=== PATIENT | male | born 1995 | race Caucasian/White ===

== ENCOUNTER 2024-11-15 17:56 | Emergency (ER) | payer BC, SELFPAY ==
[2024-11-15 18:00] VITALS: BP 130/67; PULSE 108; RESP 18; TEMP 36.7; O2SAT 97
--- NOTE | 2024-11-15 18:23 | XRR_ITS ---
PROCEDURE INFORMATION: Exam: XR Right Finger(s) Exam date and time: 11/15/2024 6:26 PM Age: 29 years old Clinical indication: Injury or trauma; Other: Law mower cut; Laceration; Right; Middle finger; Additional info: Trauma, 3rd digit, lawnmower injury TECHNIQUE: Imaging protocol: Radiologic exam of the right fingers. Views: Minimum 2 views. COMPARISON: No relevant prior studies available. FINDINGS: Bones/joints: No acute fracture or dislocation. Soft tissues: Distal 3rd finger laceration. No radiopaque foreign body. XR/XR finger RT min 2V 69510 IMPRESSION: No acute bony findings.
--- NOTE | 2024-11-15 18:40 | ED_ITS ---
HPI - Wound/Laceration General: Chief Complaint: Wound/Laceration Stated Complaint: cut right middle finger Time Seen by Provider: 11/15/24 18:16 Source: patient Mode of arrival: ambulatory Limitations: no limitations History of Present Illness: 29yo male presents with family for evalu ation of an injury of the right middle finger that occurred when he accidentally cut himself on a lawnmower blade. Patient reports he is not certain how deep or big the laceration is. States he is able to move his finger. Patient saw a flap and wrapped his finger in a paper towel. Unsure when last tetanus. Denies any other injury or concern at this time. Associated symptoms: Denies chills or fever(s) Related Data Previous Rx's ?Medication ?Instructions ?Recorded promethazine-DM 6.25 mg-15 mg/5 mL 10 ml PO Q6H PRN co ugh #118 mL 09/25/23 oral syrup cephalexin 500 mg capsule 500 mg PO Q6H #12 caps 11/15 Allergies Allergy/AdvReac Type Severity Reaction Status Date / Time No Known Allergies Allergy Verified 09/25/23 18:36 Review of Systems Const: Denies: fever(s) or chills Card: Denies: chest pain Resp: Denies: dyspnea Skin/Breast: Reports: other (laceration right middle finger) [facility] ED PFSH: Social History Smoking and tobacco/nicotine status: former use of tobacco/nicotine Alcohol intake: never Substance/Drug Use: never Physical Exam Const: COMMON NORMALS: no acute distress, patient oriented x3, healthy appearing and alert GENERAL APPEARANCE: cooperative ORIENTATION/CONSCIOU SNESS: Yes awake OTHER: Patient is ambulatory to the exam room unassisted. He is sitting upright on the stretcher no acute distress. He is able to give history with no difficulty. He is interactive with exam appropriately. Family is at bedside HENMT: COMMON NORMALS: normocephalic and atraumatic HEAD & SCALP: normocephalic and atraumatic Chest: CHEST: Yes Symmetrical chest wall rise Resp: COMMON NORMALS: normal respiratory effort EFFORT & INSPECTION: Yes able to speak in complete sentences Extremity: RIGHT UPPER EXTREMITY: Yes hand & digits (flap laceration to the distal middle finger, volar aspect) Neuro: COMMON NORMALS: patient oriented x3 SENSORIUM/ORIENTATION: Yes alert Psych: ATTITUDE: Yes calm Skin: TRAUMA: laceration flap (right middle finger) Procedures Laceration Laceration 1: Site: hand (right middle finger) Side (If applicable): right Size (cm): 2.5 Description: flap Depth: simple, single layer Local Anesthetic: lidocaine 1% and bupivacaine 0.5% Amount of anesthesia used (mL): 4 Skin layer closed with: nylon Size (cm): 5-0 Number of sutures: 3 Technique: simple, interrupted Course Vital Signs: Vital signs: Vital Signs Temperature 98.0 F 11/15/24 18:00 Pulse Rate 108 H 11/15/24 18:00 Respiratory Rate 18 11/15/24 18:00 Blood Pressure 130/67 11/15/24 18:00 Pulse Oximetry 97 11/15/24 18:00 MDM - Wound/Laceration Medical Decision Making 29yo male presents with family for evaluation of an injury of the right middle finger that occurred when he accidentally cut himself on a lawnmower blade. Patient reports he is not certain how deep or big the laceration is. States he is able to move his finger. Patient saw a flap and wrapped his finger in a paper towel. Unsure when last tetanus. Denies any other injury or concern at this time. Patient is nontoxic in appearance. Vital signs are stable. Tetanus updated. No fracture or acute bony abnormality noted on the x-ray. Wound copiously irrigated and flap tacked down. Cephalexin provided in the emergency department and prescription sent to patient's pharmacy. Discussed wound care. Recommend follow-up with primary care in about a week for suture removal, sooner if concern for infection or if any worsening. Return precautions provided. Patient states understanding and has no further questions or concerns at this time. Differential Diagnosis Likely laceration and avulsion of skin Medical Records I reviewed the patient's medical records. Lab Data Radiology Impressions Finger X-Ray 11/15/24 18:23 IMPRESSION: No acute bony findings. All radiology interpretation(s) finalized by discharge Discharge Plan Discharge Patient Disposition: Home Clinical Impression: Laceration Contact with powered [employer] speech language pathologist Qualifiers: Encounter type: initial encounter Qualified Code(s): W28.XXXA - Contact with powered [employer] speech language pathologist, initial encounter Condition: Stable Prescriptions: New cephalexin 500 mg capsule 500 mg PO Q6H Qty: 12 0RF No Action promethazine-DM 6.25-15 mg/5 mL syrup 10 ml PO Q6H PRN (Reason: cough) Qty: 118 0RF Discharge Orders: Discharge ED (Routine); Ordered 11/15/24 Ordered By: Orestes Cheung Referrals: Keiko Grant FNP-C [Primary Care Provider, Family Practice] Discharge Diet: Usual diet Discharge Activity: Increase activity as tolerated Patient Instructions: Finger Laceration (ED) Activity Restrictions/Additional Instructions: Your tetanus was updated today Cephalexin has been sent to the pharmacy to help prevent infection from the laceration Gently wash at least twice daily with soap and water, then apply antibiotic ointment. 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
[2024-11-15] MEDS: tetanus-dipt-pertussis 0.5 mL SDV IM (19:00)
[2024-11-15] MEDS: lidocaine 1% 10 ML INJ 2 ML XX (19:04)
[2024-11-15] MEDS: BUPivacaine 0.5% INJ 30 mL XX (19:04)
[2024-11-15] MEDS: cephALEXin 500 mg Capsule PO (19:27)
== END 2024-11-15 19:37 | disposition home or self-care (01) ==
PROVIDERS: Emergency Provider Nurse Practitioner; PCP Nurse Practitioner Family
DX: S61.212A Laceration without foreign body of right middle finger without damage to nail, initial encounter (principal); W28.XXXA Contact with powered lawn mower, initial encounter; Z87.891 Personal history of nicotine dependence; Z23 Encounter for immunization
CPT/HCPCS: 12001; 73140; 90471; 90715; 99284; 99291; J3490; J9999